=== PATIENT | female | born 1975 | race Two or more races ===

== ENCOUNTER → 2020-11-21 | Outpatient (CLI) | payer MEDICAID ==
[~2020-11-21] MED LIST: IBUP-1007 PO; IOHEXOL 180 MG/ML 10 ML VIAL. ONE; METH-562 PO; methylPREDNISolone ACETATE 40 MG/ML VIAL. ONE; methylPREDNISolone ACETATE 80 MG/ML VIAL. ONE
--- NOTE | 2020-11-21 12:16 | PDOC1 ---
INITIAL PAIN CONSULT DATE OF SERVICE: DOS: DATE: 11/21/20 TIME: 12:10 CHIEF COMPLAINT: Chief Complaint: Low back and right lower extremity pain HISTORY OF PRESENT ILLNESS: 45-year-old female presents with history of pain low back right lower extremity for about 2 to 3 months but getting much worse after October 30, 2020 not the result of any specific injury or accident that she is aware but that day became much more noticeable more painful pain in the low back bilaterally radiating to the bilateral right and the left posterior gluteus and lateral thighs now is more focused on the right side still some pain on the left but mostly in the right side radiating to the right leg posterior gluteus posterior thigh lateral thigh anterior thigh into the posterior calf and foot as well as the toes initially patient reports that his results to a minor extent if she been doing a lot of exercises and stretching and strengthening but the pain is persistent in the right back and thigh patient reports shooting in the leg changes during the day worse with walking standing changing positions better with sitting but then has some tailbone pain as well is waking from sleep least for 5 times a night she has to put pillows between her knees and on her side to get herself to sleep with it wakes her up frequently. Patient reports is not effective bowel bladder control does affect her ability to walk she feels her right leg straight is to t he lateral aspect when she is walking more than it used to. Patient has been taking muscle relaxer as well as ibuprofen without significant decrease in pain muscle relaxers methocarbamol. Patient not had any formal physical therapy or other treatments at this time but is very active and works out daily and is doing a lot of stretching and exercise which has not been significantly helpful. Patient rates her disability rating 0-10 10 being the worst is a 7 in all categories family home responsibilities recreation social activity occupation sexual behavior life support activities and self-care activities. Patient did have a CT scan of the lumbar spine showing L5-S1 small broad-based disc bulge with left foraminal disc protrusion with slight abutment of the descending S1 nerve roots right greater than left minimal left neuroforaminal narrowing with protrusion marginating the exiting left L5 nerve root. PAST MEDICAL HISTORY: PMH: Gastroesophageal reflux PREVIOUS SURGERIES: Past Surgical Hx: Cyst removed in the right leg in 2019, 2003, breast implants 2013, right arm surgery 2012 CURRENT MEDICATIONS: Current Meds: Active Scripts Medications Dose Route/Sig Max Daily Dose Days Date Category Ibuprofen 600 Mg Tablet 600 Mg PO PRN Q6HRS PRN 11/21/20 Reported Methocarbamol 750 Mg Tablet 750 Mg PO HS 11/21/20 Reported FAMILY HISTORY: Family Hx: Patient is adopted is little family history that she is aware of. SOCIAL HISTORY: Social Hx: Patient does not drink alcohol does not smoke or use any illegal illicit or recreational drugs is single has 3 children living home lives locally in [facility] REVIEW OF SYSTEMS: ROS: Positive for those items mentioned in history of present illness, all systems are reviewed, otherwise negative ,and are complete full and well-documented on patient's chart. PHYSICAL EXAM: VS: Blood pressure is 116/58 pulse 47 respirations 18 temperature is 97.8 F height 5 foot 3 inches weight is 136 pounds PE: PHYSICAL EXAMINATION: GENERAL: The patient is awake, alert, oriented, appropriate, very pleasant in demeanor. HEENT: Shows normocephalic, atraumatic. Extraocular movements are intact and s ymmetrical. Oral cavity: Mucous membranes moist and pink. Dentition is intact. NECK: Shows anterior throat supple without palpable lymphadenopathy noted. Swallow reflex symmetrical. CHEST: Shows normal on inspection. Breath sounds are clear bilaterally, distant but no rales rhonchi or wheezes auscultated. HEART: Shows S1, S2 clear. No murmurs auscultated. ABDOMEN: Soft, nontender, nondistended, flat. No palpable organomegaly is noted. No rebound or guarding demonstrated. BACK: Shows spine grossly in the midline. Normal-appearing cervical lordotic curvature. There is slightly increased thoracic kyphosis, some minor flattening of the lumbar lordotic curvature. Lumbar paraspinous muscles show symmetrical on inspection, on palpation shows some moderate tenderness diffusely throughout the upper, middle and lower distribution of the paraspinous muscles bilaterally and also into the lower thoracic paraspinous musculature, firm and tender, but without specific trigger points, without radiation of pain. The patient has good rotational motion of the lumbar spine, both laterally as well as extension and flexion without significant difficulty. No tenderness over the spinous processes, sacrum or sacroiliac regions. EXTREMITIES: Lower extremities show deep tendon reflexes 2+ in the patellar and tendo calcaneus tendons. Motor exam is 4 on a scale of 5 with right dorsiflexion, extension, quadriceps and hamstring flexion and 5/5 on the left. Peripheral pulses are 1 posterior tibial. No peripheral edema is noted b ilaterally. Lower extremities are warm and dry to touch, equal in color and appearance. Straight leg raise noted to be positive on the right about 40 degrees, left side is neck. Gaenslen's and Gregory's maneuvers are negative bilaterally as well. The patient is able to stand, stand on her toes without difficulty loss of balance walks with a normal-appearing gait does not appear to favor the right or left lower extremity significantly is not use any assistive devices ambulate such as canes or walkers. SKIN: Shows warm and dry, good turgor. No edema. No sores, rashes or bruising throughout. IMPRESSION: Impression: 45-year-old female with low back right lower extremity pain in a radicular fashion CT scan lumbar spine as noted Plan: options were discussed with the patient including conservative medical management physical therapy interventional techniques. Patient would like to pursue dimensional techniques. We discussed a lumbar epidural steroid injection using description as well as anatomical models to describe the procedure. Risks were discussed including but not limited to: Bleeding, infection, possibility of epidural hematoma and subsequent neurological compromise, dural puncture, headaches, spinal cord and/or nerve damage, side effects of steroid medication, and poor results regarding pain control. Patient understands and wished to proceed. Patient will return to the clinic in approximately 2 weeks for follow- up, was counseled as return appointment activity level and side effects to be aware of. Procedure is lumbar epidural steroid injection under local anesthetic using sterile prep and drape at the L5-S1 level using C-arm fluoroscopic guidance in both AP and lateral views medications injected is 120 mg Depo-Medrol +10mL preservative-free normal saline and 2 mL contrast- condition at discharge is stable patient tolerated procedure well had no complications. PRAVEEN JO MD Nov 21, 2020 12:16
--- NOTE | 2020-11-21 12:16 | PDOC4 ---
Procedure Note: ICD 10 Code: ICD 10 Code: M54.17 M54.16 M 47.817 Procedure Note: Patient was consented for lumbar epidural steroid injection with fluoroscopic guidance. Risks were discussed including but not limited to: Bleeding, infection, possibility of epidural hematoma and subsequent neurological compromise, dural puncture, headaches, spinal cord and/or nerve damage, side effects of steroid medication, and poor results regarding pain control. Patient understands and wished to proceed. Procedure is lumbar epidural steroid injection under local anesthetic using st erile prep and drape at the L5-S1 level using C-arm fluoroscopic guidance in both AP and lateral views medications injected is 120 mg Depo-Medrol +10mL preservative-free normal saline and 2 mL contrast- condition at discharge is stable patient tolerated procedure well had no complications. PRAVEEN JO MD Nov 21, 2020 12:16
== END | disposition home or self-care (01) ==
LOC: PNCL 11:02
PROVIDERS: ATTEND Anesthesiology
DX: M54.5 Low back pain (principal); M79.604 Pain in right leg; K21.9 Gastro-esophageal reflux disease without esophagitis; Z79.899 Other long term (current) drug therapy
CPT/HCPCS: 62323; 99205; J1030; J1040; Q9965; G0463

== ENCOUNTER → 2020-12-23 | Outpatient (CLI) | payer MEDICAID ==
[~2020-12-23] MED LIST changes: -methylPREDNISolone ACETATE 40 MG/ML VIAL. ONE; -methylPREDNISolone ACETATE 80 MG/ML VIAL. ONE
--- NOTE | 2020-12-23 10:57 | PDOC ---
Progress Note - Pain Clinic Date of Service: DOS: DATE: 12/23/20 TIME: 10:55 Diagnosis: Dx: Lumbar radiculopathy with lumbar degenerative disease and lumbar spondylosis History or Present Illness: HPI: 45-year-old female returns for follow-up status post lumbar epidural steroid action x1. Patient reports about 80% improvement until the last few days the pain began to return in the low back and into the right greater than left lower extremity patient reports some pain in the left lower extremity now which is new finding for her, as she only had on the right side in the past, but now it is on the left leg as well in the posterior gluteus posterior thigh still much worse on the right side radiating all the way to the foot but some on the left now as well patient reports is a 7 on scale 10 at all times over the last week worst average and least is a 7 today patient reports is tingling in the leg radiating the legs tight in the back again left side as well as right patient reports it disturbs her sleep significantly about every 2 hours she is awakening from this initially though she was doing much better with distance walking doing household activities work activities travel with greater ease and comfort sleeping better the pain returning now as noted and again new finding of left lower extremity pain as well. Patient reports no bowel or bladder incontinence no loss of motor function. Physical Exam: VS: Blood pressure is 113/79 pulse 80 respirations 18 temperature 98.2 F weight is 133 pounds PE: PHYSICAL EXAMINATION: GENERAL: The patient is awake, alert, oriented, appropriate, very pleasant in demeanor HEENT: Shows normocephalic, atraumatic. Extraocular movements are intact and symmetrical. Oral cavity: Mucous membranes moist and pink. Dentition is intact. NECK: Shows anterior throat supple without palpable lymphadenopathy noted. Swallow reflex symmetrical. CHEST: Shows normal on inspection. Breath sounds are clear bilaterally, no rales or rhonchi auscultated. HEART: Shows S1, S2 clear. No murmurs auscultated. ABDOMEN: Soft, nontender, nondistended, flat. No palpable organomegaly is noted. BACK: Shows spine grossly in the midline. Normal-appearing cervical lordotic curvature. There is slightly increased thoracic kyphosis, some minor flattening of the lumbar lordotic curvature. Lumbar paraspinous muscles show symmetrical on inspection, on palpation shows some moderate tenderness diffusely throughout the upper, middle and lower distribution of the paraspinous muscles, but without specific trigger points, without radiation of pain. The patient has good rotational motion of the lumbar spine, both laterally as well as extension and flexion without significant difficulty. EXTREMITIES: Lower extremities show deep tendon reflexes 2+ in the patellar and tendo calcaneus tendons. Motor exam is 4 on a scale of 5 with right dorsiflexion, extension, quadriceps and hamstring flexion and 5/5 on the left. Peripheral pulses are 1+ posterior tibial. No peripheral edema is noted b ilaterally. Lower extremities are warm and dry to touch, equal in color and appearance. SKIN: Shows warm and dry, good turgor. No edema. No sores, rashes or bruising throughout. Procedure: Procedure: Options were discussed with the patient. Patient's old chart reviews her current medication regimen updated current review of systems updated today as well. We will proceed with a lumbar epidural steroid injection today with fluoroscopic guidance. Risks were discussed including but not limited to: Bleeding, infection, possibility of epidural hematoma and subsequent neurological compromise, dural puncture, headaches, spinal cord and/or nerve damage, side effects of steroid medication, and poor results regarding pain control. Patient understands and wished to proceed. Return to clinic in closely for some follow-up, was counseled as to return appointment, activity level, and side effects beware of. Medication Injected: Med Injected: Procedure is lumbar epidural steroid injection under local anesthetic using sterile prep and drape at the L5-S1 level using C-arm fluoroscopic guidance in both AP and lateral views medications injected is 120 mg Depo-Medrol +10mL preservative-free normal saline and 2 mL contrast- condition at discharge is stable patient tolerated procedure well had no complications. Condition at Discharge: Condition at Discharge: Condition at discharge is stable, patient tolerated procedure well and had no complications. PRAVEEN JO MD Dec 23, 2020 10:57
--- NOTE | 2020-12-23 10:58 | PDOC4 ---
Procedure Note: ICD 10 Code: ICD 10 Code: M54.17 M4 7.817 M51.87 Procedure Note: Patient was consented for lumbar epidural steroid injection with fluoroscopic guidance. Risks were discussed including but not limited to: Bleeding, infection, possibility of epidural hematoma and subsequent neurological compromise, dural puncture, headaches, spinal cord and/or nerve damage, side effects of steroid medication, and poor results regarding pain control. Patient understands and wished to proceed. Procedure is lumbar epidural steroid injection under local anesthetic using st erile prep and drape at the L5-S1 level using C-arm fluoroscopic guidance in both AP and lateral views medications injected is 120 mg Depo-Medrol +10mL preservative-free normal saline and 2 mL contrast- condition at discharge is stable patient tolerated procedure well had no complications. PRAVEEN JO MD Dec 23, 2020 10:58
== END | disposition home or self-care (01) ==
LOC: PNCL 10:17
PROVIDERS: ATTEND Anesthesiology
DX: M51.16 Intervertebral disc disorders with radiculopathy, lumbar region (principal); M47.26 Other spondylosis with radiculopathy, lumbar region; Z79.899 Other long term (current) drug therapy
CPT/HCPCS: 62323; Q9965

== ENCOUNTER → 2021-02-16 | Outpatient (CLI) | payer MEDICAID ==
[~2021-02-16] MED LIST changes: +methylPREDNISolone ACETATE 40 MG/ML VIAL. ONE; +methylPREDNISolone ACETATE 80 MG/ML VIAL. ONE
--- NOTE | 2021-02-16 13:37 | PDOC ---
Progress Note - Pain Clinic Date of Service: DOS: DATE: 02/16/21 TIME: 13:33 Diagnosis: Dx: Lumbar radiculopathy with lumbar degenerative disease and lumbar spondylosis History or Present Illness: HPI: 45-year-old female returns for follow-up status post lumbar epidural steroid injection last seen December 23, 2020. Patient reports he did very well about 70 to 80% improvement pain in the low back and in the right greater than left lower extremity patient reports is just in the back now not as much radiation to lower extremities still some on the right side the posterior gluteus and posterior thigh patient reports is worse in the morning when she first gets out of bed starts getting active she is doing some physical therapy and is doing traction now with physical therapy which she feels may be helpful as well patient reports her pain is a 6 on scale 10 is worse over the past week 5 on average 3 days least is a 5 today patient scribes as tight on and off in intensity with some spastic pain which is new in the low back itself but again less radiation to the lower extremities. Patient reports no motor or sensory deficits no bowel or bladder incontinence. Physical Exam: VS: Blood pressure is 103/75 pulse 80 respirations 18 temperature is 97.8 F height is 5 feet 3 inches weight is 135 pounds PE: PHYSICAL EXAMINATION: GENERAL: The patient is awake, alert, oriented, appropriate, very pleasant in demeanor HEENT: Shows normocephalic, atraumatic. Extraocular movements are intact and symmetrical. Oral cavity: Mucous membranes moist and pink. Dentition is intact. NECK: Shows anterior throat supple without palpable lymphadenopathy noted. Swallow reflex symmetrical. CHEST: Shows normal on inspection. Breath sounds are clear bilaterally, distant but no rales. HEART: Shows S1, S2 clear. No murmurs auscultated. ABDOMEN: Soft, nontender, nondistended, flat. No palpable organomegaly is noted. BACK: Shows spine grossly in the midline. Normal-appearing cervical lordotic curvature. There is slightly increased thoracic kyphosis, some minor flattening of the lumbar lordotic curvature. Lumbar paraspinous muscles show symmetrical on inspection, on palpation shows some moderate tenderness diffusely throughout the upper, middle and lower distribution of the paraspinous muscles, but without specific trigger points, without radiation of pain. The patient has good ro tational motion of the lumbar spine, both laterally as well as extension and flexion without significant difficulty. EXTREMITIES: Lower extremities show deep tendon reflexes 2+ in the patellar and tendo calcaneus tendons. Motor exam is 4 on a scale of 5 with right dorsiflexion, extension, quadriceps and hamstring flexion and 5/5 on the left. Peripheral pulses are 1+ posterior tibial. No peripheral edema is noted bilaterally. Lower extremities are warm and dry to touch, equal in color and appearance. SKIN: Shows warm and dry, good turgor. No edema. No sores, rashes or bruising throughout. Procedure: Procedure: Options were discussed with the patient. Patient chart was reviewed as her current medication regimen updated current review of systems updated today as well. We will proceed with a lumbar epidural steroid injection today with fluoroscopic guidance. Risks were discussed including but not limited to: Bleeding, infection, possibility of epidural hematoma and subsequent neurological compromise, dural puncture, headaches, spinal cord and/or nerve damage, side effects of steroid medication, and poor results regarding pain control. Patient understands and wished to proceed. Patient will return to clinic in approximate 2 weeks for follow-up, was counseled as return appointment, typical, and side effect to be aware of. Medication Injected: Med Injected: Procedure is lumbar epidural steroid injection under local anesthetic using sterile prep and drape at the L5-S1 level using C-arm fluoroscopic guidance in both AP and lateral views medications injected is 120 mg Depo-Medrol +10mL preservative-free normal saline and 2 mL contrast- condition at discharge is stable patient tolerated procedure well had no complications. Condition at Discharge: Condition at Discharge: Condition at discharge stable, patient tolerated the procedure well and had no complications. PRAVEEN JO MD Feb 16, 2021 13:37
--- NOTE | 2021-02-16 13:37 | PDOC4 ---
Procedure Note: ICD 10 Code: ICD 10 Code: M5 4.17 M51.87 M4 7.817 Procedure Note: Patient was consented for lumbar epidural steroid injection with fluoroscopic guidance. Risks were discussed including but not limited to: Bleeding, infection, possibility of epidural hematoma and subsequent neurological compromise, dural puncture, headaches, spinal cord and/or nerve damage, side effects of steroid medication, and poor results regarding pain control. Patient understands and wished to proceed. Procedure is lumbar epidural steroid injection under local anesthetic using s terile prep and drape at the L5-S1 level using C-arm fluoroscopic guidance in both AP and lateral views medications injected is 120 mg Depo-Medrol +10mL preservative-free normal saline and 2 mL contrast- condition at discharge is stable patient tolerated procedure well had no complications. PRAVEEN JO MD Feb 16, 2021 13:37
== END | disposition home or self-care (01) ==
LOC: PNCL 13:11
PROVIDERS: ATTEND Anesthesiology
DX: M51.16 Intervertebral disc disorders with radiculopathy, lumbar region (principal); M47.26 Other spondylosis with radiculopathy, lumbar region; Z79.899 Other long term (current) drug therapy
CPT/HCPCS: 62323; J1030; J1040; Q9965

== ENCOUNTER → 2021-07-16 | Outpatient (CLI) | payer MEDICAID ==
[~2021-07-16] MED LIST changes: +DEXAMETHASONE PRES.FREE 10 MG/ML VIAL. ONE; -methylPREDNISolone ACETATE 40 MG/ML VIAL. ONE; -methylPREDNISolone ACETATE 80 MG/ML VIAL. ONE
--- NOTE | 2021-07-16 10:16 | PDOC ---
Progress Note - Pain Clinic Date of Service: DOS: DATE: 07/16/21 TIME: 10:13 Diagnosis: Dx: Lumbar radiculopathy with lumbar degenerative disease and lumbar spondylosis History or Present Illness: HPI: 46-year-old female returns status post lumbar epidural steroid injection last seen February 16, 2021. Patient did very well about 90% improvement for several months following the injection patient reports the pain is returning now but is different it is going into the tailbone more than into the lower extremities although still in the lower extremities right greater than left at the tailbone is very much more tender with sleeping and is waking her from sleep fairly significantly patient reports also pain in the posterior gluteus posterior thighs on the right side as well is across the back patient rates her pain is a 10 on scale 10 is worse over the past week 8 on average 5 at its least, and is an 8 today. Patient reports no bowel or bladder incontinence no loss of motor function with significant fatigability of the right lower extremity with walking standing change positions. Patient describes pain is sharp in the back constant in the tailbone and sharp in the tailbone and shooting in the leg. Patient reports no deficits but again significant fatigability and difficulty sleeping. Physical Exam: VS: Blood pressure is 114/60 pulse 73 respirations 18 temperature 98.1 F height 5 foot 3 inches weight 134 pounds. PE: PHYSICAL EXAMINATION: GENERAL: The patient is awake, alert, oriented, appropriate, very pleasant in demeanor HEENT: Shows normocephalic, atraumatic. Extraocular movements are intact and symmetrical. Oral cavity: Mucous membranes moist and pink. Dentition is intact. NECK: Shows anterior throat supple without palpable lymphadenopathy noted. Swallow reflex symmetrical. CHEST: Shows normal on inspection. Breath sounds are clear bilaterally. HEART: Shows S1, S2 clear. No murmurs auscultated. ABDOMEN: Soft, nontender, nondistended. No palpable organomegaly is noted. BACK: Shows spine grossly in the midline. Normal-appearing cervical lordotic curvature. There is slightly increased thoracic kyphosis, some minor flattening of the lumbar lordotic curvature. Lumbar paraspinous muscles show symmetrical on inspection, on palpation shows some moderate tenderness diffusely throughout the upper, middle and lower distribution of the paraspinous muscles without specific trigger points, without radiation of pain. The patient has good rotational motion of the lumbar spine, both laterally as well as extension and flexion without significant difficulty. Patient shows significant tenderness over the middle and inferior aspect of the sacrum and to the coccyx but without displacement. EXTREMITIES: Lower extremities show deep tendon reflexes 2+ in the patellar and tendo calcaneus tendons. Motor exam is 4 on a scale of 5 with right dorsiflexion, extension, quadriceps and hamstring flexion and 5/5 on the left. Peripheral pulses are 1 posterior tibial. No peripheral edema is noted bilaterally. Lower extremities are warm and dry to touch, equal in color and appearance. SKIN: Shows warm and dry, good turgor. No edema. No sores, rashes or bruising throughout. Procedure: Procedure: Options were discussed with patient. Patient's old chart was reviewed as her current medication regimen updated current review of systems updated today as well. We will proceed with a lumbar epidural steroid injection today with fluoroscopic guidance. Risks were discussed including but not limited to: Bleeding, infection, possibility of epidural hematoma and subsequent neurological compromise, dural puncture, headaches, spinal cord and/or nerve damage, side effects of steroid medication, and poor results regarding pain control. Patient understands and wished to proceed. Patient will return to the clinic in approximately 2 weeks for follow-up, and was counseled as to return appointment, activity level, and side effects to be aware of. Medication Injected: Med Injected: Procedure is lumbar epidural steroid injection under local anesthetic using sterile prep and drape at the L5-S1 level using C-arm fluoroscopic guidance in both AP and lateral views medications injected is 20 mg dexamethasone +10mL preservative-free normal saline and 2 mL contrast- condition at discharge is stable patient tolerated procedure well had no complications. Condition at Discharge: Condition at Discharge: Condition at discharge is stable, patient tolerated the procedure well and had no complications. PRAVEEN JO MD Jul 16, 2021 10:16
--- NOTE | 2021-07-16 10:17 | PDOC4 ---
Procedure Note: ICD 10 Code: ICD 10 Code: M54.17 M51.7 M4 7.817 Procedure Note: Patient was consented for lumbar epidural steroid injection with fluoroscopic guidance. Risks were discussed including but not limited to: Bleeding, infection, possibility of epidural hematoma and subsequent neurological compromise, dural puncture, headaches, spinal cord and/or nerve damage, side effects of steroid medication, and poor results regarding pain control. Patient understands and wished to proceed. Procedure is lumbar epidural steroid injection under local anesthetic using leonardo rile prep and drape at the L5-S1 level using C-arm fluoroscopic guidance in both AP and lateral views medications injected is 20 mg dexamethasone +10mL preservative-free normal saline and 2 mL contrast- condition at discharge is stable patient tolerated procedure well had no complications. PRAVEEN JO MD Jul 16, 2021 10:17
== END | disposition home or self-care (01) ==
LOC: PNCL 09:06
PROVIDERS: ATTEND Anesthesiology
DX: M51.16 Intervertebral disc disorders with radiculopathy, lumbar region (principal); M47.26 Other spondylosis with radiculopathy, lumbar region; Z79.899 Other long term (current) drug therapy
CPT/HCPCS: 62323; J1100; Q9965